=== PATIENT | female | born 1990 | race Caucasian/White ===

== ENCOUNTER → 2024-03-03 09:44 | Outpatient (CLI) | payer OTHER, SELFPAY ==
--- NOTE | 2024-03-03 09:46 | DI.RAD.S_ITS ---
PROCEDURE: HL HYSTEROSAPINGOGRAPHY INDICATIONS: Infertility COMPARISON: None. FINDINGS: Patient had a documented negative test prior to the study. Following speculum insertion, a balloon-tip catheter was inserted into the cervical canal, and secured by inflating the balloon. Contrast was then injected into the endometrial canal. Uterus: The uterine cavity appears normal in size and morphology, without synechiae or masses. Fallopian tubes: Both fallopian tubes fill with contrast, and appear normal in caliber and morphology. There is ready dispersion of contrast into the peritoneal cavity. IMPRESSION: Patent fallopian tubes bilaterally. Dictated by: Deon Lewis M.D. on 03/03/2024 at 16:40 Approved by: Deon Lewis M.D. on 03/03/2024 at 16:41
--- NOTE | 2024-03-10 09:10 | P.PCN_ITS ---
Procedures Date/Time Date of procedure: 03/03/24 Time of procedure: 10:30 General Procedure description: Hysterosalpingogram After informed consent was obtained, the patient was placed on the fluoroscopy table. An over turned bedpan was placed under her buttocks. A bivalve speculum was placed into the vagina. The cervix was cleaned x3 with Betadine. A single- tooth tenaculum was placed on the anterior lip of the cervix. The HSG catheter passed easily into the endometrial cavity. The balloon was filled with 3 cc of air. The speculum was removed. Isovue 300 was injected through the port under direct fluoroscopic examination. The uterus immediately filled and the contours were normal. There was immediate spill from both tubes. The remainder of the contrast was removed from the uterus. The single-tooth tenaculum was removed from the anterior lip of the cervix. The HSG catheter was deflated and removed from the uterus. Sponge, lap, and instrument counts were correct x2. The patient tolerated the procedure well. Complications: none
== END ==
LOC: RAD 09:45
PROVIDERS: PCP Registered Nurse; Referring Provider Obstetrics & Gynecology; Visit Provider Obstetrics & Gynecology
DX: Z31.69 Encounter for other general counseling and advice on procreation (principal); N97.9 Female infertility, unspecified
CPT/HCPCS: 58340; 74740